=== PATIENT | male | born 1960 | race American Indian/Alaskan Native ===

== ENCOUNTER 2017-11-29 08:02 | Inpatient (IN) | payer MEDICAID ==
[2017-11-29] MEDS ORDERED: ASPIRIN PO ONE (08:38)
[2017-11-29 09:03] LABS: Hematocrit 42.4 % (35.5-45.6); Hemoglobin 14.3 gm/dl (11.8-15.2); Lymphocytes % (Auto) 25.7 % (13.4-35.0); Mean Corpuscular HGB Conc 34 % (32-34); Mean Corpuscular Hemoglobin 30 pg (28-32); Mean Corpuscular Volume 88 fl (84-94); Monocytes % (Auto) 11.8 % (0.0-7.3); Platelet Count 139 K/mm3 (140-440); Red Cell Distribution Width 16.3 % (13.2-15.2)
[2017-11-29 09:04] LABS: Eosinophils # (Auto) 0.3 K/mm3 (0.0-0.4); Eosinophils % (Auto) 6.6 % (0.0-4.3); Lymphocytes # (Auto) 1.3 K/mm3 (1.2-5.4); Monocytes # (Auto) 0.6 K/mm3 (0.0-0.8)
[2017-11-29 09:10] LABS: BUN/Creatinine Ratio 21; Blood Urea Nitrogen 19 mg/dL (9-20); Calcium 8.4 mg/dL (8.4-10.2); Hemolysis Index 7
[2017-11-29] MEDS ORDERED: LASIX IV ONE (09:41)
--- NOTE | 2017-11-29 09:49 | Emergency Department Report ---
ED General Adult HPI - General Chief complaint: Chest Pain Stated complaint: CHEST PAINS Time Seen by Provider: 11/29/17 09:41 Source: patient, EMS Mode of arrival: Stretcher Limitations: No Limitations - History of Present Illness Initial comments: 57-year-old man with previous history of heart failure and coronary artery disease presents with progressive shortness of breath over the past 4-5 days, which is typical of when he has fluid overload. He takes diuretics at home, but is still have progression of symptoms in any case. He's had some tightening of his chest and the left side, but this appears to be vague, has been intermittent over the past several days, and is present at this time, but without nausea or vomiting, and no radiation of discomfort. He has not had any leg swelling. Patient wants some sort of Keppra treatment, because he has of his mother to go to, which is scheduled for early this afternoon. -: Gradual, days(s) (45) Radiation: non-radiation Severity scale (0 -10): 7 Quality: aching, other (tightness) Consistency: intermittent Improves with: none Worsens with: none Associated Symptoms: denies other symptoms - Related Data Home Medications Medication Instructions Recorded Confirmed Last Taken Atorvastatin Calcium [Lipitor] 80 mg PO DAILY 11/29/17 11/29/17 11/29/17 Carvedilol [Coreg] 3.125 mg PO BIDWM 11/29/17 11/29/17 11/29/17 Clopidogrel Bisulfate [Plavix] 75 mg PO QDAY 11/29/17 11/29/17 11/29/17 Gabapentin [Neurontin] 100 mg PO TID 11/29/17 11/29/17 11/29/17 metFORMIN [Glucophage] 500 mg PO BIDWM 11/29/17 11/29/17 11/29/17 Allergies Allergy/AdvReac Type Severity Reaction Status Date / Time No Known Allergies Allergy Verified 11/29/17 08:37 ED Review of Systems ROS: Stated complaint: CHEST PAINS Other details as noted in HPI Constitutional: denies: chills, fever Eyes: as per HPI Respiratory: shortness of breath, SOB with exertion, SOB at rest. denies: cough , wheezing Cardiovascular: chest pain, dyspnea on exertion. denies: palpitations, edema, syncope Endocrine: no symptoms reported Gastrointestinal: denies: abdominal pain, nausea, diarrhea Genitourinary: denies: urgency, dysuria Skin: as per HPI Neurological: denies: headache, weakness, paresthesias Psychiatric: denies: anxiety, depression Hematological/Lymphatic: denies: easy bleeding, easy bruising ED Past Medical Hx - Past Medical History Previous Medical History?: Yes Hx Hypertension: Yes Hx Congestive Heart Failure: Yes (treated at [place], apparently reduced ejection fraction, with cardiac enlarg) Hx Diabetes: Yes - Social History Smoking Status: Current Every Day Smoker Substance Use Type: None, Alcohol - Medications Home Medications: Home Medications Medication Instructions Recorded Confirmed Last Taken Type Atorvastatin Calcium [Lipitor] 80 mg PO DAILY 11/29/17 11/29/17 11/29/17 History Carvedilol [Coreg] 3.125 mg PO BIDWM 11/29/17 11/29/17 11/29/17 History Clopidogrel Bisulfate [Plavix] 75 mg PO QDAY 11/29/17 11/29/17 11/29/17 History Gabapentin [Neurontin] 100 mg PO TID 11/29/17 11/29/17 11/29/17 History metFORMIN [Glucophage] 500 mg PO BIDWM 11/29/17 11/29/17 11/29/17 History ED Physical Exam - General Limitations: No Limitations General appearance: in distress (moderate acute respiratory distress, blood pressure is 148/101) - Head Head exam: Present: atraumatic - Eye Eye exam: Present: normal appearance, PERRL - ENT ENT exam: Present: mucous membranes moist - Neck Neck exam: Present: normal inspection - Respiratory Respiratory exam: Present: respiratory distress (tachypneic, increased work of breathing), accessory muscle use. Absent: wheezes, rales, chest wall tenderness - Cardiovascular Cardiovascular Exam: Present: regular rate, tachycardia - GI/Abdominal GI/Abdominal exam: Present: soft. Absent: tenderness - Rectal Rectal exam: Present: deferred - Extremities Exam Extremities exam: Present: normal inspection. Absent: pedal edema - Back Exam Back exam: Present: normal inspection - Neurological Exam Neurological exam: Present: alert, oriented X3 - Psychiatric Psychiatric exam: Present: agitated - Skin Skin exam: Present: warm, dry ED Course Vital Signs 11/29/17 11/29/17 11/29/17 08:09 08:17 08:31 Temperature 97.6 F Pulse Rate 81 80 80 Respiratory 15 20 20 Rate Blood Pressure 134/70 O2 Sat by Pulse 97 97 Oximetry 11/29/17 11/29/17 11/29/17 09:00 10:00 10:30 Temperature Pulse Rate 85 79 85 Respiratory 21 21 Rate Blood Pressure 129/90 139/98 139/98 O2 Sat by Pulse 97 96 Oximetry 11/29/17 11:00 Temperature Pulse Rate 86 Respiratory 25 H Rate Blood Pressure 149/102 O2 Sat by Pulse 100 Oximetry - Reevaluation(s) Reevaluation #1: 11/29/17 12:04 Patient clearly breathing more easily, but still reports some respiratory discomfort, some air hunger, but oxygen saturation is 100%, and blood pressure repeat examination is 149/102. Patient has received Lasix, and has urinated significantly, and he has 1/2 inch of nitroglycerin, but will need afterload reduction, and Cardene drip started for this purpose. - Consultations Consultation #1: 11/29/17 12:17 Dr. Nati Roy consult, will admit patient for further care, bridge orders entered into computer. ED Medical Decision Making - Lab Data Result diagrams: 11/29/17 08:43 11/29/17 10:39 - EKG Data -: EKG Interpreted by Co EKG shows normal: sinus rhythm (71 bpm), axis (normal QRS axis, 60), intervals (normal QT interval 459 ms corrected), QRS complexes (LVH by voltage criteria precordial leads), ST-T waves (secondary repolarization changes lateral precordial leads, minor nonspecific ST changes V2, less than 2 mm) - Radiology Data Radiology results: report reviewed (radiology reports lung staton are essentially clear, with normal cardiac silhouette.) Clear lung staton, no cardiomegaly or pulmonary vascular congestion - Medical Decision Making Patient has acute heart failure, probably with reduced ejection fraction, with previous care at another hospital, and prior records for comparison were not available as there been no prior visits. Patient was somewhat improved with diuresis, but still remains hypertensive, and although he has 100% oxygenation, speaking more comfortably, will need hospitalization and further diuresis and management. Hospitalist automobile club information clerk contacted, and will admit patient to telemetry for further care. Although d-dimer is borderline elevated, this does not appear to be significantly related to patient's current condition, which is well explained by his underlying pre-existing condition. - Differential Diagnosis heart failure, myocardial infarction, ulnar embolism Critical Care Time: Yes Critical care time in (mins) excluding proc time.: 60 Critical care attestation.: If time is entered above; I have spent that time in minutes in the direct care of this critically ill patient, excluding procedure time. Critical Care Time: 60 minutes of critical care time was provided in stabilized and managing this patient with unstable heart failure, with acute respiratory distress, hypoxia, and recent history of cocaine abuse. No billable procedures were performed during this encounter ED Disposition Clinical Impression: Heart failure Disposition: [id number] OP ADMIT IP TO THIS HOSP Is pt being admited?: Yes Does the pt Need Aspirin: No (given in ED) Condition: Stable Referrals: PRIMARY CARE, [Primary Care Provider] - 3-5 Days Time of Disposition: 12:12
[2017-11-29] MEDS ORDERED: NITRO-BID 2% TP ONE (10:18)
--- NOTE | 2017-11-29 10:58 | XRay Report ---
PORTABLE CHEST: Pain. An AP portable view of the chest demonstrates a normal cardiac contour considering the limits of this technique. The lungs are clear with no evidence of infiltrate, fluid or failure. IMPRESSION: Normal portable chest.
[2017-11-29 11:08] LABS: INR 0.93 (0.87-1.13)
[2017-11-29 11:09] LABS: Partial Thromboplastin Time 30.3 Sec. (24.2-36.6)
[2017-11-29] MEDS ORDERED: ATIVAN IV ONE (11:11)
[2017-11-29 11:17] LABS: Alanine Aminotransferase 24 units/L (7-56); Albumin 3.9 g/dL (3.9-5); BUN/Creatinine Ratio 22; Blood Urea Nitrogen 20 mg/dL (9-20); Calcium 8.7 mg/dL (8.4-10.2); Hemolysis Index 13
[2017-11-29 11:37] LABS: Alanine Aminotransferase 24 units/L (7-56); Albumin 3.8 g/dL (3.9-5); Bilirubin,Direct < 0.2 mg/dL (0-0.2)
[2017-11-29] MEDS ORDERED: CARDENE 50 MG in NACL 0.9% 250ML 230 ML IV SCH (12:00)
[2017-11-29] MEDS ORDERED: SODIUM CHLORIDE FLUSH SYRINGE 10 ML IV PRN ×2 (12:13→23:06)
[2017-11-29] MEDS ORDERED: TYLENOL PO PRN ×2 (12:13→23:06)
[2017-11-29] MEDS ORDERED: ZOFRAN IV PRN ×2 (12:13→23:06)
[2017-11-29 12:15] LABS: Bilirubin,Urine NEG (Negative); Blood,Urine NEG (Negative); Color,Urine Straw (Yellow); Protein,Urine <15 mg/dL mg/dL (Negative); Urobilinogen,Urine < 2.0 mg/dL (<2.0)
[2017-11-29 12:18] LABS: WBC,Urine < 1.0 /HPF (0.0-6.0)
[2017-11-29 12:40] LABS: Amphetamine Screen,Urine PRESUMPTIVE NEGATIVE; Benzodiazepines Screen,Urine PRESUMPTIVE NEGATIVE; Cannabinoid Screen,Urine PRESUMPTIVE NEGATIVE; Methadone Screen,Urine PRESUMPTIVE NEGATIVE; Opiate Screen,Urine PRESUMPTIVE NEGATIVE
[2017-11-29 12:55] LABS: Cocaine Screen,Urine PRESUMPTIVE POSITIVE
[2017-11-29] MEDS ORDERED: APRESOLINE IV ONE (16:09)
[2017-11-29] MEDS ORDERED: SODIUM CHLORIDE FLUSH SYRINGE 10 ML IV SCH (22:00)
--- NOTE | 2017-11-29 23:05 | Event Note ---
Date: 11/29/17 See Dictated H/p in reports
[2017-11-29] MEDS ORDERED: PERCOCET 5/325 PO PRN (23:06)
[2017-11-29] MEDS ORDERED: MORPHINE IV PRN (23:06)
[2017-11-29] MEDS ORDERED: AMBIEN PO PRN (23:06)
[2017-11-30] MEDS: K-DUR PO SCH ×2 (00:41→10:00)
[2017-11-30] MEDS: GLUCOPHAGE PO SCH ×2 (00:41→10:00)
[2017-11-30] MEDS: COREG PO SCH ×2 (00:45→10:00)
[2017-11-30 04:44] LABS: Basophils # (Auto) 0.1 K/mm3 (0.0-0.1); Basophils % (Auto) 1.1 % (0.0-1.8); Eosinophils # (Auto) 0.4 K/mm3 (0.0-0.4); Hematocrit 43.7 % (35.5-45.6); Hemoglobin 13.8 gm/dl (11.8-15.2); Lymphocytes # (Auto) 1.6 K/mm3 (1.2-5.4); Lymphocytes % (Auto) 30.3 % (13.4-35.0); Mean Corpuscular HGB Conc 32 % (32-34); Mean Corpuscular Hemoglobin 28 pg (28-32); Mean Corpuscular Volume 90 fl (84-94); Monocytes # (Auto) 0.6 K/mm3 (0.0-0.8); Monocytes % (Auto) 11.5 % (0.0-7.3); Platelet Count 142 K/mm3 (140-440); Red Blood Count 4.85 M/mm3 (3.65-5.03)
[2017-11-30 04:49] LABS: Alanine Aminotransferase 18 units/L (7-56); BUN/Creatinine Ratio 16; Blood Urea Nitrogen 16 mg/dL (9-20); Calcium 8.5 mg/dL (8.4-10.2); Hemolysis Index 11
[2017-11-30 05:26] LABS: Albumin 3.5 g/dL (3.9-5)
[2017-11-30] MEDS ORDERED: LASIX IV SCH (06:00)
[2017-11-30] MEDS ORDERED: NEURONTIN PO SCH (08:00)
[2017-11-30] MEDS ORDERED: PLAVIX PO SCH (10:00)
[2017-11-30] MEDS ORDERED: PEPCID PO SCH (10:00)
[2017-11-30] MEDS ORDERED: NON-FORMULARY (Atorvastatin Calcium [Lipitor] 80 MG) PO SCH (10:00)
[2017-11-30] MEDS ORDERED: SODIUM CHLORIDE FLUSH SYRINGE 10 ML IV SCH (10:00)
--- NOTE | 2017-11-30 11:10 | Consultation ---
History of Present Illness Consult date: 11/30/17 Requesting physician: LEIGHANN FERRARA Consult reason: congestive heart failure History of present illness: The pt is a 57 YO male with a past medical history significant for CMP, heart failure, HLP, DM, COPD, crack cocaine abuse, ETOH abuse, tobacco use. He is previously unknown to our practice. He presented with complaints of SOB and chest pain for 2-3 days prior to arrival. He reports his chest pain as a midsternal, nonexertional, nonradiating intermittent "hurting" pain. On evaluation, the pain is currently resolved, He denies any palpitations, n/v, diaphoresis, dizziness or syncope. He reports that he has a longstanding history of CMP and heart failure (for at least 2-3 years per pt report). He reports that he recently underwent cardiac catheterization at either [facility] or [facility] and was told his heart looked "okay". He does not regularly follow a labor economics professor as an OP, even though he acknowledges that he knows he needs close cardiac follow-up. He also adamantly declines AICD, stating "no, I don't ever want one of those things implanted in my chest". Past History Past Medical History: diabetes, heart failure, hyperlipidemia Social history: smoking, alcohol abuse, other (crack cocaine use) Medications and Allergies Allergies Allergy/AdvReac Type Severity Reaction Status Date / Time No Known Allergies Allergy Verified 11/29/17 08:37 Home Medications Medication Instructions Recorded Confirmed Last Taken Type Atorvastatin Calcium [Lipitor] 80 mg PO DAILY 11/29/17 11/29/17 11/29/17 History Carvedilol [Coreg] 3.125 mg PO BIDWM 11/29/17 11/29/17 11/29/17 History Clopidogrel Bisulfate [Plavix] 75 mg PO QDAY 11/29/17 11/29/17 11/29/17 History Gabapentin [Neurontin] 100 mg PO TID 11/29/17 11/29/17 11/29/17 History metFORMIN [Glucophage] 500 mg PO BIDWM 11/29/17 11/29/17 11/29/17 History Active Meds: Active Medications Acetaminophen (Tylenol) 650 mg PO Q4H PRN PRN Reason: Pain MILD(1-3)/Fever >100.5/MIXON Atorvastatin Calcium (Lipitor) 80 mg PO QHS [facility] Carvedilol (Coreg) 3.125 mg PO BID@0800,1700 [facility] Last Admin: 11/30/17 00:45 Dose: Not Given Clopidogrel Bisulfate (Plavix) 75 mg PO QDAY [facility] Famotidine (Pepcid) 20 mg PO BID [facility] Furosemide (Lasix) 40 mg IV 0600,1800 [facility] Last Admin: 11/30/17 06:48 Dose: 40 mg Gabapentin (Neurontin) 100 mg PO TID [facility] Metformin HCl (Glucophage) 500 mg PO BIDDIAB [facility] Last Admin: 11/30/17 00:41 Dose: 500 mg Morphine Sulfate (Morphine) 2 mg IV Q4H PRN PRN Reason: Pain, Moderate (4-6) Ondansetron HCl (Zofran) 4 mg IV Q8H PRN PRN Reason: Nausea And Vomiting Oxycodone/Acetaminophen (Percocet 5/325) 1 tab PO Q6H PRN PRN Reason: Pain, Moderate (4-6) Potassium Chloride (K-Dur) 20 meq PO Q12HR [facility] Last Admin: 11/30/17 00:41 Dose: 20 meq Sodium Chloride (Sodium Chloride Flush Syringe 10 Ml) 10 ml IV BID [facility] Sodium Chloride (Sodium Chloride Flush Syringe 10 Ml) 10 ml IV PRN PRN PRN Reason: LINE FLUSH Zolpidem Tartrate (Ambien) 5 mg PO QHS PRN PRN Reason: Insomnia Review of Systems Constitutional: no weight loss, no weight gain, no fever, no chills Ears, nose, mouth and throat: no ear pain, no nose pain, no sinus pressure, no sinus pain Cardiovascular: chest pain, shortness of breath, dyspnea on exertion, no orthopnea, no palpitations, no rapid/irregular heart beat, no edema, no syncope , no lightheadedness, no leg edema Respiratory: shortness of breath, dyspnea on exertion, no cough, no congestion, no wheezing, no pain on inspiration Gastrointestinal: no abdominal pain, no nausea, no vomiting, no diarrhea, no constipation, no change in bowel habits Genitourinary Male: no dysuria, no hematuria, no flank pain, no discharge, no urinary frequency, no urinary hesitancy Musculoskeletal: no neck stiffness, no neck pain, no shooting arm pain, no arm numbness/tingling, no low back pain, no shooting leg pain, no leg numbness/ tingling, no redness of joints Integumentary: no rash, no pruritis, no redness, no sores, no wounds Neurological: no head injury, no paralysis, no weakness, no parathesias, no numbness, no tingling, no seizures, no syncope Psychiatric: no anxiety Endocrine: no cold intolerance, no heat intolerance Hematologic/Lymphatic: no easy bruising, no easy bleeding, no lymphadenopathy Allergic/Immunologic: no urticaria, no wheezing, no persistent infections Physical Examination Vital Signs Pulse Resp 81 15 11/29/17 08:09 11/29/17 08:09 General appearance: no acute distress HEENT: Positive: PERRL, Normocephaly, Mucus Membranes Moist Neck: Positive: neck supple, trachea midline Cardiac: Positive: Reg Rate and Rhythm, S1/S2, Systolic Murmur Lungs: Positive: clear to auscultation Neuro: Positive: Grossly Intact Abdomen: Positive: Soft Skin: Positive: Clear. Negative: Rash, Wound Musculoskeletal: No Fluid Collection, No Pain, Normal Range of Motion Extremities: Absent: edema Results 11/30/17 03:54 11/30/17 03:54 Cardiac Enzymes 11/29/17 11/29/17 11/30/17 Range/Units 10:39 10:39 03:54 AST 26 27 23 (5-40) units/L CBC 11/30/17 Range/Units 03:54 WBC 5.4 (4.5-11.0) K/mm3 RBC 4.85 (3.65-5.03) M/mm3 Hgb 13.8 (11.8-15.2) gm/dl Hct 43.7 (35.5-45.6) % Plt Count 142 (140-440) K/mm3 Lymph # 1.6 (1.2-5.4) K/mm3 Bowie # 0.6 (0.0-0.8) K/mm3 Eos # 0.4 (0.0-0.4) K/mm3 Baso # 0.1 (0.0-0.1) K/mm3 Comprehensive Metabolic Panel 11/29/17 11/29/17 11/30/17 Range/Units 10:39 10:39 03:54 Sodium 144 142 (137-145) mmol/L Potassium 4.5 4.0 (3.6-5.0) mmol/L Chloride 108.0 H 105.0 (98-107) mmol/L Carbon Dioxide 24 22 (22-30) mmol/L BUN 20 16 (9-20) mg/dL Creatinine 0.9 1.0 (0.8-1.5) mg/dL Glucose 125 H 162 H (75-100) mg/dL Calcium 8.7 8.5 (8.4-10.2) mg/dL Direct Bilirubin < 0.2 (0-0.2) mg/dL Indirect Bilirubin 0.2 mg/dL AST 26 27 23 (5-40) units/L ALT 24 24 18 (7-56) units/L Alkaline Phosphatase 103 103 88 (35-129) units/L Total Protein 6.8 6.7 5.9 L (6.3-8.2) g/dL Albumin 3.9 3.8 L 3.5 L (3.9-5) g/dL - Imaging and Cardiology Echo: report reviewed (11/30/2017: EF 15-20%, mild to mod LVH, LA mildly dilated , mod to severe MR) EKG: report reviewed, image reviewed EKG interpretations - Telemetry EKG Rhythm: Sinus Rhythm - EKG Sinus rhythms and dysrhythmias: sinus rhythm Chamber hypertrophy or enlargement: left ventricular hypertro Repolarization changes or abnormalities: repolarization abn secondary to ventricular hypertrophy Assessment and Plan Assessment: Acute systolic heart failure 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 Cont present cardiac regimen. Consider addition of ACEI/ARB if BPs permit. Pt reports that he has a longstanding history of CMP and heart failure (for at least 2-3 years per pt report). He reports that he recently underwent cardiac catheterization at either [facility] or [facility] and was told his heart looked "okay". [place] records reviewed with no ischemic evaluation noted. Will attempt to obtain medical records from [facility]. Pt adamantly declines AICD. Assessment and plan reviewed with pt at bedside. The patient has been seen in conjunction with Dr. Morel who agrees with the assessment and plan of care.
[2017-11-30 12:47] VITALS: BP 146/86
--- NOTE | 2017-11-30 14:08 | History and Physical Report ---
History of Present Illness Date of examination: 11/30/17 Date of admission: 11/29/17 12:13 Chief complaint: CC : Sob for 3 days History of present illness: History of Present Illness: 57 YO male with a past medical history significant for CMP, heart failure, HLP, DM, COPD, crack cocaine abuse, ETOH abuse,and tobacco presented with complaints of SOB and chest pain for 2-3 days prior to arrival. He reports his chest pain as a midsternal, nonexertional, nonradiating intermittent "hurting" pain. On evaluation, the pain is currently resolved, He denies any palpitations , n/v, diaphoresis, dizziness or syncope. He reports that he has a longstanding history of CMP and heart failure (for at least 2-3 years per pt report). He reports that he recently underwent cardiac catheterization at either [facility] or [facility]. 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 He also adamantly declines AICD. Past Medical History: diabetes, heart failure, hyperlipidemia Social history: smoking, alcohol abuse, other (crack cocaine use) Surgery History N/A Family History:Htn Medications and Allergies Allergies Allergy/AdvReac Type Severity Reaction Status Date / Time No Known Allergies Allergy Verified 11/29/17 08:37 Home Medications Medication Instructions Recorded Confirmed Last Taken Type Atorvastatin Calcium [Lipitor] 80 mg PO DAILY 11/29/17 11/29/17 11/29/17 History Carvedilol [Coreg] 3.125 mg PO BIDWM 11/29/17 11/29/17 11/29/17 History Clopidogrel Bisulfate [Plavix] 75 mg PO QDAY 11/29/17 11/29/17 11/29/17 History Gabapentin [Neurontin] 100 mg PO TID 11/29/17 11/29/17 11/29/17 History metFORMIN [Glucophage] 500 mg PO BIDWM 11/29/17 11/29/17 11/29/17 History Review of Systems Constitutional: no weight loss, no weight gain, no fever, no chills Ears, nose, mouth and throat: no ear pain, no nose pain, no sinus pressure, no sinus pain Cardiovascular: chest pain, shortness of breath, dyspnea on exertion, no orthopnea, no palpitations, no rapid/irregular heart beat, no edema, no syncope , no lightheadedness, no leg edema Respiratory: shortness of breath, dyspnea on exertion, no cough, no congestion, no wheezing, no pain on inspiration Gastrointestinal: no abdominal pain, no nausea, no vomiting, no diarrhea, no constipation, no change in bowel habits Genitourinary Male: no dysuria, no hematuria, no flank pain, no discharge, no urinary frequency, no urinary hesitancy Musculoskeletal: no neck stiffness, no neck pain, no shooting arm pain, no arm numbness/tingling, no low back pain, no shooting leg pain, no leg numbness/ tingling, no redness of joints Integumentary: no rash, no pruritis, no redness, no sores, no wounds Neurological: no head injury, no paralysis, no weakness, no parathesias, no numbness, no tingling, no seizures, no syncope Psychiatric: no anxiety Endocrine: no cold intolerance, no heat intolerance Hematologic/Lymphatic: no easy bruising, no easy bleeding, no lymphadenopathy Allergic/Immunologic: no urticaria, no wheezing, no persistent infections Past History Past Medical History: diabetes, heart failure, hyperlipidemia Social history: smoking, alcohol abuse, other (crack cocaine use) Medications and Allergies Allergies Allergy/AdvReac Type Severity Reaction Status Date / Time No Known Allergies Allergy Verified 11/29/17 08:37 Home Medications Medication Instructions Recorded Confirmed Last Taken Type Atorvastatin Calcium [Lipitor] 80 mg PO DAILY 11/29/17 11/29/17 11/29/17 History Carvedilol [Coreg] 3.125 mg PO BIDWM 11/29/17 11/29/17 11/29/17 History Clopidogrel Bisulfate [Plavix] 75 mg PO QDAY 11/29/17 11/29/17 11/29/17 History Gabapentin [Neurontin] 100 mg PO TID 11/29/17 11/29/17 11/29/17 History metFORMIN [Glucophage] 500 mg PO BIDWM 11/29/17 11/29/17 11/29/17 History Active Meds: Active Medications Acetaminophen (Tylenol) 650 mg PO Q4H PRN PRN Reason: Pain MILD(1-3)/Fever >100.5/MIXON Atorvastatin Calcium (Lipitor) 80 mg PO QHS [place]FIN[place] Carvedilol (Coreg) 3.125 mg PO BID@0800,1700 [facility] Last Admin: 11/30/17 10:00 Dose: 3.125 mg Clopidogrel Bisulfate (Plavix) 75 mg PO QDAY [facility] Last Admin: 11/30/17 11:00 Dose: 75 mg Famotidine (Pepcid) 20 mg PO BID [facility] Last Admin: 11/30/17 10:00 Dose: 20 mg Furosemide (Lasix) 40 mg IV 0600,1800 [facility] Last Admin: 11/30/17 06:48 Dose: 40 mg Gabapentin (Neurontin) 100 mg PO TID [facility] Last Admin: 11/30/17 10:00 Dose: 100 mg Metformin HCl (Glucophage) 500 mg PO BIDDIAB [facility] Last Admin: 11/30/17 10:00 Dose: 500 mg Morphine Sulfate (Morphine) 2 mg IV Q4H PRN PRN Reason: Pain, Moderate (4-6) Ondansetron HCl (Zofran) 4 mg IV Q8H PRN PRN Reason: Nausea And Vomiting Oxycodone/Acetaminophen (Percocet 5/325) 1 tab PO Q6H PRN PRN Reason: Pain, Moderate (4-6) Potassium Chloride (K-Dur) 20 meq PO Q12HR [facility] Last Admin: 11/30/17 10:00 Dose: 20 meq Sodium Chloride (Sodium Chloride Flush Syringe 10 Ml) 10 ml IV BID [facility] Last Admin: 11/30/17 10:00 Dose: 10 ml Sodium Chloride (Sodium Chloride Flush Syringe 10 Ml) 10 ml IV PRN PRN PRN Reason: LINE FLUSH Zolpidem Tartrate (Ambien) 5 mg PO QHS PRN PRN Reason: Insomnia Exam - Constitutional Vitals: Temp Pulse Resp BP Pulse Ox 97.5 F L 81 18 146/86 98 11/30/17 13:53 11/30/17 13:53 11/30/17 13:53 11/30/17 13:53 11/30/17 13:53 General appearance: Present: mild distress, well-nourished - EENT Eyes: Present: PERRL ENT: hearing intact, clear oral mucosa - Neck Neck: Present: supple, normal ROM - Respiratory Respiratory effort: normal Respiratory: bilateral: CTA, rales, rhonchi - Cardiovascular Heart rate: 78 Rhythm: regular Heart Sounds: Present: S1 & S2. Absent: rub, click - Extremities Extremities: no ischemia, pulses intact, pulses symmetrical, No edema Peripheral Pulses: within normal limits - Abdominal General gastrointestinal: Present: soft, non-tender, non-distended, normal bowel sounds Male genitourinary: Present: normal - Rectal Rectal Exam: deferred - Integumentary Integumentary: Present: clear, warm, dry - Musculoskeletal Musculoskeletal: gait normal, strength equal bilaterally - Psychiatric Psychiatric: appropriate mood/affect, intact judgment & insight - Neurologic Neurologic: CNII-XII intact, moves all extremities - Allied Health Allied health notes reviewed: nursing, case management Results - Labs CBC & Chem 7: 11/30/17 03:54 11/30/17 03:54 Labs: Laboratory Last Values WBC 5.4 K/mm3 (4.5-11.0) 11/30/17 03:54 RBC 4.85 M/mm3 (3.65-5.03) 11/30/17 03:54 Hgb 13.8 gm/dl (11.8-15.2) 11/30/17 03:54 Hct 43.7 % (35.5-45.6) 11/30/17 03:54 MCV 90 fl (84-94) 11/30/17 03:54 MCH 28 pg (28-32) 11/30/17 03:54 MCHC 32 % (32-34) 11/30/17 03:54 RDW 17.0 % (13.2-15.2) H 11/30/17 03:54 Plt Count 142 K/mm3 (140-440) 11/30/17 03:54 Lymph % (Auto) 30.3 % (13.4-35.0) 11/30/17 03:54 [place] % (Auto) 11.5 % (0.0-7.3) H 11/30/17 03:54 Eos % (Auto) 7.0 % (0.0-4.3) H 11/30/17 03:54 Baso % (Auto) 1.1 % (0.0-1.8) 11/30/17 03:54 Lymph # 1.6 K/mm3 (1.2-5.4) 11/30/17 03:54 [place] # 0.6 K/mm3 (0.0-0.8) 11/30/17 03:54 Eos # 0.4 K/mm3 (0.0-0.4) 11/30/17 03:54 Baso # 0.1 K/mm3 (0.0-0.1) 11/30/17 03:54 Seg Neutrophils % 50.1 % (40.0-70.0) 11/30/17 03:54 Seg Neutrophils # 2.7 K/mm3 (1.8-7.7) 11/30/17 03:54 PT 12.9 Sec. (12.2-14.9) 11/29/17 10:39 INR 0.93 (0.87-1.13) 11/29/17 10:39 APTT 30.3 Sec. (24.2-36.6) 11/29/17 10:39 D-Dimer 300.84 ng/mlDDU (0-234) H 11/29/17 10:39 Sodium 142 mmol/L (137-145) 11/30/17 03:54 Potassium 4.0 mmol/L (3.6-5.0) 11/30/17 03:54 Chloride 105.0 mmol/L (98-107) 11/30/17 03:54 Carbon Dioxide 22 mmol/L (22-30) 11/30/17 03:54 Anion Gap 19 mmol/L 11/30/17 03:54 BUN 16 mg/dL (9-20) 11/30/17 03:54 Creatinine 1.0 mg/dL (0.8-1.5) 11/30/17 03:54 Estimated GFR > 60 ml/min 11/30/17 03:54 BUN/Creatinine Ratio 16 % 11/30/17 03:54 Glucose 162 mg/dL (75-100) H 11/30/17 03:54 POC Glucose 128 (70-105) H 11/30/17 12:28 Hemoglobin A1c 6.4 % (4-6) H 11/29/17 23:19 Calcium 8.5 mg/dL (8.4-10.2) 11/30/17 03:54 Total Bilirubin 0.50 mg/dL (0.1-1.2) 11/30/17 03:54 Direct Bilirubin < 0.2 mg/dL (0-0.2) 11/29/17 10:39 Indirect Bilirubin 0.2 mg/dL 05/14/18 10:39 AST 23 units/L (5-40) 11/30/17 03:54 ALT 18 units/L (7-56) 11/30/17 03:54 Alkaline Phosphatase 88 units/L (35-129) 11/30/17 03:54 Troponin T 0.016 ng/mL (0.00-0.029) 11/29/17 14:52 NT-Pro-B Natriuret Pep 1263 pg/mL (0-900) H 11/29/17 11:58 Total Protein 5.9 g/dL (6.3-8.2) L 11/30/17 03:54 Albumin 3.5 g/dL (3.9-5) L 11/30/17 03:54 Albumin/Globulin Ratio 1.5 % 11/30/17 03:54 Urine Color Straw (Yellow) 11/29/17 11:58 Urine Turbidity Clear (Clear) 11/29/17 11:58 Urine pH 6.0 (5.0-7.0) 11/29/17 11:58 Ur Specific [place] 1.005 (1.003-1.030) 11/29/17 11:58 Urine Protein <15 mg/dl mg/dL (Negative) 11/29/17 11:58 Urine Glucose (UA) Neg mg/dL (Negative) 11/29/17 11:58 Urine Ketones Neg mg/dL (Negative) 11/29/17 11:58 Urine Blood Neg (Negative) 11/29/17 11:58 Urine Nitrite Neg (Negative) 11/29/17 11:58 Urine Bilirubin Neg (Negative) 11/29/17 11:58 Urine Urobilinogen < 2.0 mg/dL (<2.0) 11/29/17 11:58 Ur Leukocyte Esterase Neg (Negative) 11/29/17 11:58 Urine WBC (Auto) < 1.0 /HPF (0.0-6.0) 11/29/17 11:58 Urine RBC (Auto) 1.0 /HPF (0.0-6.0) 11/29/17 11:58 Urine Opiates Screen Presumptive negative 11/29/17 11:58 Urine Methadone Screen Presumptive negative 11/29/17 11:58 Ur Barbiturates Screen Presumptive negative 11/29/17 11:58 Ur Phencyclidine Scrn Presumptive negative 11/29/17 11:58 Ur Amphetamines Screen Presumptive negative 11/29/17 11:58 U Benzodiazepines Scrn Presumptive negative 11/29/17 11:58 Urine Cocaine Screen Presumptive positive 11/29/17 11:58 U Marijuana (THC) Screen Presumptive negative 11/29/17 11:58 Drugs of Abuse Note Disclamer 11/29/17 11:58 - Imaging and Cardiology EKG: report reviewed (70 /min NSR LVH ST elevation) Chest x-ray: report reviewed Assessment and Plan Advance Directives: Yes (Full code) VTE prophylaxis?: Chemical Plan of care discussed with patient/family: Yes - Patient Problems (1) Acute diastolic (congestive) heart failure Current Visit: Yes Status: Acute Plan to address problem: ECHO I/O's Daily weights Cardiology consult Lasix 40 q12h Kcl 20 meq q12h (2) HTN (hypertension) Current Visit: Yes Status: Chronic Qualifiers: Hypertension type: essential hypertension Qualified Code(s): I10 - Essential (primary) hypertension Plan to address problem: Cont antihypertensives (3) Gout Current Visit: Yes Status: Chronic Plan to address problem: Cont Allopurinol (4) Hyperlipidemia Current Visit: Yes Status: Chronic Qualifiers: Hyperlipidemia type: mixed hyperlipidemia Qualified Code(s): E78.2 - Mixed hyperlipidemia Plan to address problem: Cont Statins (5) CAD (coronary artery disease) Current Visit: Yes Status: Chronic Qualifiers: Coronary Disease-Associated Artery/Lesion type: [place] artery [place] vs. transplanted heart: [place] heart Plan to address problem: Cont Plavix (6) Cocaine abuse Current Visit: Yes Status: Acute Plan to address problem: Counselled (7) DVT prophylaxis Current Visit: Yes Status: Acute Plan to address problem: on Heparin
--- NOTE | 2017-11-30 14:21 | Progress Note ---
Assessment and Plan - Patient Problems (1) Acute diastolic (congestive) heart failure Current Visit: Yes Status: Acute Plan to address problem: ECHO I/O's Daily weights Cardiology consult Lasix 40 q12h Kcl 20 meq q12h (2) HTN (hypertension) Current Visit: Yes Status: Chronic Qualifiers: Hypertension type: essential hypertension Qualified Code(s): I10 - Essential (primary) hypertension Plan to address problem: Cont antihypertensives (3) Gout Current Visit: Yes Status: Chronic Plan to address problem: Cont Allopurinol (4) Hyperlipidemia Current Visit: Yes Status: Chronic Qualifiers: Hyperlipidemia type: mixed hyperlipidemia Qualified Code(s): E78.2 - Mixed hyperlipidemia Plan to address problem: Cont Statins (5) CAD (coronary artery disease) Current Visit: Yes Status: Chronic Qualifiers: Coronary Disease-Associated Artery/Lesion type: [place] artery [place] vs. transplanted heart: [place] heart Plan to address problem: Cont Plavix (6) Cocaine abuse Current Visit: Yes Status: Acute Plan to address problem: Counselled (7) DVT prophylaxis Current Visit: Yes Status: Acute Plan to address problem: on Heparin Subjective Date of service: 11/30/17 Principal diagnosis: CHF exacerbation Interval history: Doing better SOB better Objective - Constitutional Vitals: Vital Signs - 12hr 11/30/17 11/30/17 11/30/17 05:33 05:40 10:00 Temperature 98.2 F Pulse Rate 78 71 85 Respiratory 20 Rate Blood Pressure 110/68 146/86 Blood Pressure [Right] O2 Sat by Pulse 100 Oximetry 11/30/17 11/30/17 12:17 13:53 Temperature 98.6 F 97.5 F L Pulse Rate 85 81 Respiratory 18 18 Rate Blood Pressure 146/86 Blood Pressure 146/86 [Right] O2 Sat by Pulse 98 98 Oximetry General appearance: Present: no acute distress, well-nourished - EENT Eyes: PERRL, EOM intact ENT: hearing intact, clear oral mucosa Ears: bilateral: normal - Neck Neck: supple, normal ROM - Respiratory Respiratory effort: normal Respiratory: bilateral: CTA, rales - Breasts Breasts: deferred, normal - Cardiovascular Heart rate: 70 Rhythm: regular Heart Sounds: Present: S1 & S2. Absent: gallop, rub Extremities: no ischemia, pulses intact, No edema, normal color, Full ROM - Gastrointestinal General gastrointestinal: Present: soft, non-tender, non-distended, normal bowel sounds - Genitourinary Male genitourinary: normal - Integumentary Integumentary: clear, warm, dry - Musculoskeletal Musculoskeletal: 1, strength equal bilaterally - Neurologic Neurologic: moves all extremities - Psychiatric Psychiatric: memory intact, appropriate mood/affect, intact judgment & insight - Allied health notes Allied health notes reviewed: nursing - Labs CBC & Chem 7: 11/30/17 03:54 11/30/17 03:54 Labs: Abnormal lab results 11/29/17 11/29/17 11/30/17 Range/Units 22:33 23:19 03:54 RDW 17.0 H (13.2-15.2) % [place] % (Auto) 11.5 H (0.0-7.3) % Eos % (Auto) 7.0 H (0.0-4.3) % Glucose (75-100) mg/dL POC Glucose 174 H (70-105) Hemoglobin A1c 6.4 H (4-6) % Total Protein (6.3-8.2) g/dL Albumin (3.9-5) g/dL 11/30/17 11/30/17 Range/Units 03:54 12:28 RDW (13.2-15.2) % [place] % (Auto) (0.0-7.3) % Eos % (Auto) (0.0-4.3) % Glucose 162 H (75-100) mg/dL POC Glucose 128 H (70-105) Hemoglobin A1c (4-6) % Total Protein 5.9 L (6.3-8.2) g/dL Albumin 3.5 L (3.9-5) g/dL
== END 2017-11-30 21:00 | disposition left against medical advice (07) | DRG 293 ==
LOC: ED 08:02 → 4A 12:13
PROVIDERS: ADMIT Internal Medicine; ATTEND Internal Medicine
DX: I11.0 Hypertensive heart disease with heart failure (principal); I42.9 Cardiomyopathy, unspecified; I50.41 Acute combined systolic (congestive) and diastolic (congestive) heart failure; E78.5 Hyperlipidemia, unspecified; J44.9 Chronic obstructive pulmonary disease, unspecified; E11.9 Type 2 diabetes mellitus without complications; F10.10 Alcohol abuse, uncomplicated; Y90.9 Presence of alcohol in blood, level not specified; M10.9 Gout, unspecified; I25.10 Atherosclerotic heart disease of native coronary artery without angina pectoris; F14.10 Cocaine abuse, uncomplicated; F17.200 Nicotine dependence, unspecified, uncomplicated; R07.89 Other chest pain; Z82.49 Family history of ischemic heart disease and other diseases of the circulatory system; Z79.84 Long term (current) use of oral hypoglycemic drugs; R06.03 Acute respiratory distress; R09.02 Hypoxemia
CPT/HCPCS: 36415; 71045; 80048; 80053; 80074; 80307; 81001; 82962; 83036; 83880; 84484; 85025; 85379; 85610; 85730; 93005; 93010; 93306; 96365; 96375; 99291; J0360; J1940; J2060; J7050